=== PATIENT | male | born 1945 | race African-American/Black ===

== ENCOUNTER → 2017-09-16 16:02 | Outpatient (CLI) | payer MEDICARE, MEDICAID ==
[2017-09-16 16:43] LABS: CREATININE - SERUM 1.2 mg/dL (0.6-1.3)
== END | disposition home or self-care (01) ==
LOC: D.CT 09:00
PROVIDERS: Legal Medicine
DX: C34.12 Malignant neoplasm of upper lobe, left bronchus or lung (principal)

== ENCOUNTER → 2017-12-17 14:06 | Outpatient (CLI) | payer MEDICARE, MEDICAID | END | disposition home or self-care (01) | LOC: D.CT 14:06 | DX: C34.90 Malignant neoplasm of unspecified part of unspecified bronchus or lung (principal) ==